=== PATIENT | female | born 1985 | race Caucasian/White ===

== ENCOUNTER 2018-06-03 14:52 | Outpatient (CLI) | payer BC, OTHER | END 2018-06-03 14:53 | disposition home or self-care (01) | LOC: BICULT 14:52 | PROVIDERS: ATTEND Family Medicine | DX: Z34.02 Encounter for supervision of normal first pregnancy, second trimester (principal) | CPT/HCPCS: 76805 ==

== ENCOUNTER 2018-08-30 09:49 | Day surgery (SDC) | payer OTHER ==
[2018-08-30 10:29] VITALS: BP 109/68; TEMP 97.7; BMI 36.6
[2018-08-30 11:44] LABS: Hemoglobin A1c 4.7 % (4.0-6.0)
[2018-08-30 12:03] LABS: Anion Gap 11 mmol/L (10-20); BUN (Urea Nitrogen) 7 mg/dL (7.0-18.7); Calc. Creatinine Clearance 172 mL/min (70-130); Calcium 8.5 mg/dL (7.8-10.44); Carbon Dioxide 20 mmol/L (22-29); Chloride 107 mmol/L (98-107); Estimated GFR-MDRD Greater than 90; Glucose 83 mg/dL (70-105); Potassium 3.7 mmol/L (3.5-5.1); Sodium 134 mmol/L (136-145)
--- NOTE | 2018-08-30 13:52 | ULT ---
ULTRASOUND BIOPHYSICAL PROFILE: HISTORY: 33-year-old female in third trimester of . FINDINGS: breathin tone: 2 movement: 2 Amniotic fluid volume: 2 IMPRESSION: Normal biophysical profile score of 8/8, excluding the non-stress test. karl [] POS: BARNEY
--- NOTE | 2018-08-30 14:37 | ULT ---
ULTRASOUND OBSTETRICAL COMPLETE: DATE: 08/30/18 HISTORY: 33-year-old female in third trimester of . Evaluate growth and amniotic fluid volume. FINDINGS: number: Mccoy. lie: Vertex. Maternal cervix: Completely obscured by shadowing. Placenta: Anterior. No placenta previa. Amniotic fluid volume: MARIFER = 9 cm. heart rate: 141 bpm. anatomy not evaluated on the current exam. biometry: Head circumference (HC): 33 cm 37w 4d Biparietal diameter (BPD): 8.9 cm 36w 1d Abdominal circumference (AC): 31.3 cm 35w 2d Femur length (FL): 6.9 cm 35w 4d Average ultrasound age (AUA): 36w 0d Estimated date of delivery (BILL): 09/27/2018 Last menstrual period (LMP): 12/11/2017 Gestational age by LMP: 37w 3d Estimated weight (EFW): 2738 g +/- 405 g (6 lb 1 oz +/- 14 oz) Umbilical Artery Doppler: At cord insertion: Peak systolic velocity: 43 cm/s End diastolic velocity: 16 cm/s PI: 1.1 RI: 0.6 S/D Ratio: 2.6 Mid portion: Peak systolic velocity: 48 cm/s End diastolic velocity: 17.5 cm/s PI: 1.1 RI: 0.6 S/D Ratio: 2.7 Near placenta: Peak systolic velocity: 40 cm/s End diastolic velocity: 26 cm/s PI: 0.9 RI: 0.6 S/D Ratio: 2.5 IMPRESSION: 1. Live third trimester intrauterine gestation. 2. Estimated gestational age of 36 weeks, 0 days. 3. Vertex lie. 4. MARIFER = 9 cm. 5. Umbilical artery Doppler parameters as above. ESSENCE Donnelly POS: BARNEY
== END 2018-08-30 11:54 | disposition home or self-care (01) ==
LOC: L&D/OP 09:49
PROVIDERS: ATTEND Family Medicine
DX: O26.893 Other specified pregnancy related conditions, third trimester (principal); Z3A.36 36 weeks gestation of pregnancy; Z79.899 Other long term (current) drug therapy
CPT/HCPCS: 36415; 76700; 76805; 76819; 80048; 83036; 99283

== ENCOUNTER 2018-09-24 05:05 | Inpatient (IN) | payer OTHER ==
[~2018-09-24 05:05] MED LIST: Bupivacaine/Epinephrine 0.25% 30 ML VIAL ONE
[2018-09-24] MEDS ORDERED: Butorphanol Tartrate 1 MG/ML VIAL SLOW IVP PRN (05:43)
[2018-09-24] MEDS ORDERED: Promethazine HCl 25 MG/ML VIAL IM PRN ×3 (05:43→19:20)
[2018-09-24] MEDS ORDERED: Ondansetron PF 4 MG/2 ML Vial IVP PRN ×3 (05:43→22:53)
[2018-09-24] MEDS ORDERED: NS w/ Oxytocin 10 units 500 ML IV SCH ×2 (05:45)
[2018-09-24] MEDS ORDERED: NS / Oxytocin 40 units/1000ml 1,000 ML IV SCH ×2 (05:45→22:53)
[2018-09-24] MEDS ORDERED: Lidocaine 1% (PF) 30 ML VIAL SC PRN (05:45)
[2018-09-24 05:51] VITALS: BMI 36.6
[2018-09-24] MEDS: Lactated Ringer's 1,000 ML IV SCH ×4 (06:00→22:52)
[2018-09-24 06:19] LABS: Hemoglobin 11.4 g/dL (12.0-16.0); Mean Corpuscular HGB CONC 33.5 g/dL (32.0-36.0); Mean Corpuscular Hemoglobin 28.8 pg (27.0-31.0); Mean Corpuscular Volume 86.1 fL (78.0-98.0); Platelet Count 286 thou/uL (130-400); RBC Distribution Width 12.6 % (11.5-14.5); Red Blood Cell (RBC) Count 3.97 mill/uL (4.20-5.40); White Blood Cell (WBC) Count 7.7 thou/uL (4.8-10.8)
[2018-09-24 07:03] LABS: HBSAg Index 0.24 S/CO (0-0.99); HIV (1/2) Antibody/Antigen Non-Reactive (NonReactive); HIV 1/2 INDEX 0.07 S/CO (<1.00); Hep B Surf Ag Non-Reactive S/CO (NonReactive); Syphilis Antibody Nonreactive (Nonreactive); Syphilis Antibody Index 0.04 S/CO (<1.00 Non-Reactive)
[2018-09-24] MEDS ORDERED: Fentanyl 4 mcg/Bup 0.1% Cadd 100 ML ONE ×2 (07:42→15:41)
[2018-09-24] MEDS ORDERED: Lidocaine 1.5%/Epinephrine 1:200,000 5 ML AMPUL IJ ONE (09:06)
[2018-09-24] MEDS ORDERED: diphenhydrAMINE 50 MG/ML VIAL IVP PRN ×2 (09:47→19:20)
[2018-09-24] MEDS ORDERED: Acetaminophen 325 MG TAB PO PRN (09:47)
[2018-09-24] MEDS ORDERED: ePHEDrine/0.9% NaCl/PF SYRINGE 50 mg/10 ml SLOW IVP PRN (09:47)
[2018-09-24] MEDS ORDERED: Eucerin (Mineral Oil/Petrolatum,White) 30 gm Jar TOP PRN ×2 (09:47→19:20)
[2018-09-24] MEDS ORDERED: Naloxone HCl 0.4 mg/ml Vial IVP PRN ×4 (09:47→19:20)
[2018-09-24] MEDS ORDERED: Lactated Ringer's 500 ML IV PRN (09:47)
[2018-09-24] MEDS ORDERED: Fentanyl 4 mcg/Bupivacaine 0.1% Cassette 100 ML EPIDURAL SCH (10:00)
[2018-09-24] MEDS ORDERED: Communication Order-Pharmacy FS SCH ×2 (10:00→19:30)
[2018-09-24 10:12] LABS: Glucose 82 mg/dL (70-105)
[2018-09-24] MEDS: Ondansetron PF 4 MG/2 ML Vial IVP PRN ×2 (15:49→17:41)
[2018-09-24] MEDS ORDERED: Ondansetron PF 4 MG/2 ML Vial ONE ×2 (17:39→18:00)
[2018-09-24] MEDS ORDERED: CEFAZOLIN/Water 2 GM/20 ML SYRINGE SLOW IVP SCH (17:45)
[2018-09-24] MEDS ORDERED: Bicitra 30 ML UDCUP PO SCH (17:45)
--- NOTE | 2018-09-24 17:58 | PDOC.EVN ---
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 Details to follow.
[2018-09-24] MEDS ORDERED: Ketorolac Tromethamine 30 MG/ML VIAL ONE (18:00)
[2018-09-24] MEDS ORDERED: Metoclopramide HCl 10 MG/2 ML VIAL ONE (18:00)
[2018-09-24] MEDS ORDERED: CEFAZOLIN 2 GM/50 ML-DEXTROSE 2 GM in Premix Bag 1 BAG IVPB SCH (18:00)
[2018-09-24] MEDS ORDERED: Dexamethasone 20 MG/5 ML VIAL ONE (18:00)
[2018-09-24] MEDS ORDERED: Lidocaine 2% PF 5 ML VIAL ONE (18:00)
[2018-09-24] MEDS ORDERED: Azithromycin 500 MG in Sodium Chloride 0.9% 250 ML 250 ML IVPB ONE (18:03)
[2018-09-24] MEDS ORDERED: Oxytocin 10 UNITS/ML VIAL ONE ×3 (18:07→19:04)
[2018-09-24] MEDS ORDERED: Morphine PF 1 MG/ML SYR ONE (18:07)
[2018-09-24] MEDS ORDERED: Azithromycin 500 MG in Sodium Chloride 0.9% 250 ML 250 ML IVPB SCH (18:15)
[2018-09-24] MEDS ORDERED: Lidocaine 1% PF 5 ML VIAL ONE (18:35)
[2018-09-24] MEDS ORDERED: Methylergonovine 0.2 MG/ML VIAL ONE ×2 (18:35→19:14)
[2018-09-24] MEDS ORDERED: Fentanyl 100 MCG/2 ML VIAL ONE (18:41)
[2018-09-24] MEDS ORDERED: Midazolam HCl 2 mg/2 ml Vial ONE (18:46)
[2018-09-24] MEDS ORDERED: Naloxone HCl 0.4 mg/ml Vial IV PRN (19:20)
[2018-09-24] MEDS ORDERED: L&D-Morphine 4 MG/ML VIAL SLOW IVP PRN (19:20)
[2018-09-24] MEDS ORDERED: HYDROmorphone 2 MG/ML VIAL SLOW IVP PRN (19:20)
[2018-09-24] MEDS ORDERED: Meperidine HCl/PF 25 MG/ML VIAL SLOW IVP PRN (19:20)
[2018-09-24] MEDS ORDERED: Promethazine HCl 25 MG SUPP PR PRN (19:20)
[2018-09-24] MEDS ORDERED: Ondansetron HCl/PF 4 MG/2 ML Vial IVP PRN (19:20)
[2018-09-24] MEDS ORDERED: Bisacodyl 10 MG SUPP PR PRN (22:53)
[2018-09-24] MEDS ORDERED: Simethicone Chewable 80 MG TAB PO PRN (22:53)
[2018-09-24] MEDS ORDERED: Lanolin Ointment 7 GM TUBE TOP PRN (22:53)
[2018-09-24] MEDS ORDERED: diphenhydrAMINE 25 MG CAP PO PRN (22:53)
[2018-09-24] MEDS ORDERED: HYDROcodone/Acetaminophen 5/325 mg Tablet PO PRN (22:53)
[2018-09-24] MEDS ORDERED: Meperidine HCl/PF 25 MG/ML VIAL IM PRN (22:53)
[2018-09-24] MEDS ORDERED: Docusate Calcium (SURFAK) 240 MG CAP PO SCH (23:00)
[2018-09-25] MEDS ORDERED: Acetaminophen 1,000 MG in Premix Bag 1 BAG IVPB PRN (01:00)
[2018-09-25] MEDS ORDERED: Ketorolac Tromethamine 30 MG/ML VIAL IVP PRN (03:00)
[2018-09-25 05:43] LABS: Hemoglobin 10.1 g/dL (12.0-16.0); Mean Corpuscular HGB CONC 32.5 g/dL (32.0-36.0); Mean Corpuscular Hemoglobin 28.2 pg (27.0-31.0); Mean Platelet Volume 6.9 fL (7.4-10.4); Platelet Count 250 thou/uL (130-400); RBC Distribution Width 12.6 % (11.5-14.5); Red Blood Cell (RBC) Count 3.58 mill/uL (4.20-5.40)
[2018-09-25] MEDS: Ferrous Sulfate 325 MG TAB PO SCH ×2 (07:21→16:40)
[2018-09-25] MEDS ORDERED: Adacel (T-DAP) 0.5 ML SYRINGE IM ONE (09:00)
[2018-09-25] MEDS: Docusate Calcium (SURFAK) 240 MG CAP PO SCH ×2 (09:42→19:31)
[2018-09-25] MEDS: Prenatal Vitamin 1 TAB PO SCH (09:42)
[2018-09-25] MEDS: Ibuprofen 800 MG TAB PO PRN (19:31)
[2018-09-26] MEDS: HYDROcodone/Acetaminophen 5/325 mg Tablet PO PRN ×2 (01:30→11:09)
[2018-09-26] MEDS: Ferrous Sulfate 325 MG TAB PO SCH ×2 (07:40→17:43)
[2018-09-26] MEDS: Ibuprofen 800 MG TAB PO PRN (09:34)
[2018-09-26] MEDS: Docusate Calcium (SURFAK) 240 MG CAP PO SCH ×2 (09:34→20:59)
[2018-09-26] MEDS: Prenatal Vitamin 1 TAB PO SCH (09:34)
--- NOTE | 2018-09-26 13:27 | OP ---
DATE OF PROCEDURE: 09/24/2018 PREOPERATIVE DIAGNOSES: 1. Term . 2. Gestational diabetes, diet controlled. 3. Arrest of dilation. POSTOPERATIVE DIAGNOSES: 1. Term . 2. Gestational diabetes, diet controlled. 3. Arrest of dilation. PROCEDURE PERFORMED: Primary low cervical transverse section. LABORER TIN CAN: Dr. Fuentes. DESCRIPTION OF PROCEDURE: After informed consent was obtained from the patient, she was taken to the operating room after her epidural was re-bolused. She was prepped and draped in the usual sterile fashion. Once anesthesia was determined to the adequate, a Pfannenstiel incision was created with a #10 scalpel blade and carried down to the fascia. The fascia was nicked in the midline. The fascial incision was extended transverse with Wilson scissors. The superior fascial segments were grasped with Anupam and elevated, and the underlying rectus muscles were dissected free, first bluntly and then sharply. It was at this point of surgery, that supplemental nitrous oxide was given for intraoperative discomfort. The inferior fascial segment was then grasped, elevated, and the rectus muscles dissected away bluntly and then sharply with Wilson scissors. The rectus muscles were divided in the midline. The peritoneum was entered bluntly. Bladder blade was inserted. The uterus was examined in the low transverse fashion with a clean #10 scalpel blade. Clear amniotic fluid was encountered. The vertex was delivered on to the operative field, followed by the remainder of the infant, which was delivered uneventfully and atraumatically. Oropharynx was bulb suctioned on the operative field. Cord was clamped x2 and cut and a vigorous female was handed to the staff in attendance. Cord blood was obtained. The placenta was manually extracted. The uterus was exteriorized and freed of clots and debris. It was somewhat atonic and did not respond to oxytocin infusion, and Methergine IM x1 was administered with good results. The uterus was repaired with a running locking suture of 0 Vicryl in a single full-thickness layer, followed by a series of interrupted [id number] sutures of 0 Vicryl along the incision line for hemostasis, which was observed. The abdomen was irrigated copiously. The uterus was returned to the abdomen and hemostasis was again observed. The peritoneum was repaired with a running suture of 3-0 Vicryl. The facia was repaired with a running suture of 0 PDS. Three interrupted sutures of 3-0 Vicryl were placed in the subdermal layer to reapproximate the skin, which was closed with skin humberto. Sponge and instrument counts were correct x4. She tolerated the procedure well without any acute complications. She was taken to recovery room in stable condition and the to the nursery also in stable condition. FINDINGS: Viable female infant, 8 pounds and 7 ounces. Apgars of 8 and 9 at 1 and 5 minutes, respectively. COMPLICATIONS: Mild uterine atony without hemorrhage. ESTIMATED BLOOD LOSS: 700 mL. Job ID: [id number]
[2018-09-26 20:16] VITALS: TEMP 98.5
[2018-09-27] MEDS ORDERED: Sodium Chloride 0.9% 10 ML ONE ×2 (00:37→09:28)
[2018-09-27 07:52] VITALS: BP 115/78
[2018-09-27] MEDS ORDERED: Measles/Mumps/Rubella 10 MCG/0.5 ML VIAL SC SCH (08:45)
[2018-09-27] MEDS: Docusate Calcium (SURFAK) 240 MG CAP PO SCH (09:29)
[2018-09-27] MEDS: Prenatal Vitamin 1 TAB PO SCH (09:29)
[2018-09-27] MEDS: Ferrous Sulfate 325 MG TAB PO SCH (09:32)
[2018-09-27] MEDS: Ibuprofen 800 MG TAB PO PRN (14:06)
[2018-09-27] MEDS: HYDROcodone/Acetaminophen 5/325 mg Tablet PO PRN (14:06)
[2018-09-30] MEDS ORDERED: Ibuprofen 800 MG TAB PO SCH (06:00)
== END 2018-09-27 15:46 | disposition home or self-care (01) | DRG 788 ==
LOC: L&D 05:05 → 3SW 23:25
PROVIDERS: ADMIT Family Medicine; ATTEND Family Medicine
PROC: 10D00Z1 Extraction of Products of Conception, Low, Open Approach (ICD-10-PCS; principal; 2018-09-24)
PROC: 10907ZC Drainage of Amniotic Fluid, Therapeutic from Products of Conception, Via Natural or Artificial Opening (ICD-10-PCS; 2018-09-24)
PROC: 3E033VJ Introduction of Other Hormone into Peripheral Vein, Percutaneous Approach (ICD-10-PCS; 2018-09-24)
PROC: 10H07YZ Insertion of Other Device into Products of Conception, Via Natural or Artificial Opening (ICD-10-PCS; 2018-09-24)
DX: O24.420 Gestational diabetes mellitus in childbirth, diet controlled (principal); O62.1 Secondary uterine inertia; O75.89 Other specified complications of labor and delivery; Z3A.39 39 weeks gestation of pregnancy; Z37.0 Single live birth
CPT/HCPCS: 36415; 36416; 51702; 82947; 85027; 86780; 86850; 86900; 86901; 87340; 87389; 90707; J0131; J0456; J1100; J1885; J2001; J2210; J2250; J2274; J2405; J2590; J2765; J3010; J3490; J7050

== ENCOUNTER 2018-09-28 18:16 | Emergency (ER) | payer OTHER ==
[2018-09-28 20:55] LABS: #Basophils 0.1 thou/uL (0.0-0.2); #Eosinphils 0.3 thou/uL (0.0-0.7); #Lymphocytes 1.8 thou/uL (1.20-3.40); #Monocytes 0.4 thou/uL (0.11-0.59); #Neutrophils 5.2 thou/uL (1.40-6.50); %Basophils 0.7 % (0.0-1.0); %Eosinophils 3.9 % (0.0-10.0); %Lymphocytes 23.7 % (21.0-51.0); %Neutrophils 66.7 % (42.0-75.0); Hemoglobin 10.8 g/dL (12.0-16.0); Mean Corpuscular HGB CONC 33.2 g/dL (32.0-36.0); Mean Corpuscular Volume 87.3 fL (78.0-98.0); Mean Platelet Volume 6.5 fL (7.4-10.4); Platelet Count 344 thou/uL (130-400); RBC Distribution Width 12.7 % (11.5-14.5); Red Blood Cell (RBC) Count 3.74 mill/uL (4.20-5.40); White Blood Cell (WBC) Count 7.7 thou/uL (4.8-10.8)
[2018-09-28 21:17] LABS: ALT (SGPT) 34 U/L (8-55); AST (SGOT) 36 U/L (5-34); Albumin 3.2 g/dL (3.5-5.0); Alkaline Phosphatase 113 U/L (40-150); Anion Gap 11 mmol/L (10-20); BUN (Urea Nitrogen) 7 mg/dL (7.0-18.7); Bilirubin, Total 0.4 mg/dL (0.2-1.2); Calc. Creatinine Clearance 0 mL/min (70-130); Calcium 8.8 mg/dL (7.8-10.44); Carbon Dioxide 25 mmol/L (22-29); Chloride 108 mmol/L (98-107); Estimated GFR-MDRD Greater than 90; Globulin 3.3 g/dL (2.4-3.5); Glucose 85 mg/dL (70-105); Potassium 3.6 mmol/L (3.5-5.1); Protein, Total 6.5 g/dL (6.0-8.3); Sodium 140 mmol/L (136-145)
== END 2018-09-28 23:07 | disposition home or self-care (01) ==
LOC: ERS 18:16
DX: O99.89 Other specified diseases and conditions complicating pregnancy, childbirth and the puerperium (principal); R42 Dizziness and giddiness
CPT/HCPCS: 80053; 85025; 93005; 96360